=== PATIENT | male | born 1985 | race Asian ===

== ENCOUNTER 2022-05-02 22:51 | Emergency (ER) | payer SELFPAY ==
[~2022-05-02] VITALS: Ht 180.3 cm; Wt 120.0 kg
[2022-05-03 00:29] LABS: BASOPHILS % (AUTO) 0.4 % (0.0-2.0); EOSINOPHILS % (AUTO) 0 % (1.0-6.0); HEMATOCRIT 42.1 % (41-53); HEMOGLOBIN 14.4 g/dL (13.5-17.5); LYMPHOCYTES # (AUTO) 0.7 K/uL (1.0-4.8); LYMPHOCYTES % (AUTO) 5.3 % (22.0-44.0); MEAN CORPUSCULAR HEMOGLOBIN 28.7 pg (26.0-34.0); MEAN CORPUSCULAR HGB CONC 34.2 G/dL (31.0-37.0); MEAN CORPUSCULAR VOLUME 84 fL (80-100); MONOCYTES # (AUTO) 0.6 K/uL (0.1-1.0); MONOCYTES % (AUTO) 4.5 % (2.0-9.0); PLATELET COUNT (AUTO) 420 K/uL (150-450); RED BLOOD CELL COUNT(AUTO) 5.02 MIL/uL (4.50-5.90)
[2022-05-03 00:30] LABS: NEUTROPHILS % (AUTO) 89.8 % (40.0-70.0)
[2022-05-03 00:39] LABS: ANION GAP 12 mmol/L (8-16); CALCIUM, TOTAL 8.9 mg/dL (8.8-10.5); CARBON DIOXIDE 25 mmol/L (22-29); CHLORIDE 99 mmol/L (98-107); CREATININE 1.23 mg/dL (0.60-1.30); GLOMERULAR FILTR. RATE CALC 51 mL/min (>60); GLUCOSE,RANDOM 161 mg/dL (70-110); POTASSIUM 3.3 mmol/L (3.5-5.1); SODIUM SERUM 136 mmol/L (136-145); UREA NITROGEN, BLOOD 19 mg/dL (7-18)
[2022-05-03 00:53] LABS: ACETAMINOPHEN < 2 mcg/mL (10-30); ALANINE AMINOTRANSFERASE 112 U/L (12-78); ALBUMIN 4.2 g/dL (3.4-5.0); ALKALINE PHOSPHATASE 105 U/L (46-116); ASPARTATE AMINOTRANSFERASE 128 U/L (15-37); BILIRUBIN,TOTAL 0.8 mg/dL (0.1-1.0); TOTAL PROTEIN, SERUM 9.1 g/dL (6.4-8.2)
[2022-05-03] MEDS ORDERED: HALOPERIDOL 5 MG TABLET PO ONE (01:00)
[2022-05-03] MEDS ORDERED: LORazepam 1 MG TABLET PO ONE (01:00)
[2022-05-03] MEDS ORDERED: HALOPERIDOL LACTATE 5 MG/ML VIAL IM ONE (01:15)
[2022-05-03] MEDS ORDERED: LORazepam 2 MG/ML VIAL IM ONE (01:15)
[2022-05-03] MEDS ORDERED: POTASSIUM CHLORIDE 10% 40 MEQ/30 ML LIQUID UDCUP PO ONE (05:15)
[2022-05-03 05:26] VITALS: BP 140/70
== END 2022-05-03 06:14 | disposition home or self-care (01) ==
LOC: EMS 22:54 → EDBD 22:54 → EMS 05-03 06:14
DX: F91.9 Conduct disorder, unspecified (principal); R74.01 Elevation of levels of liver transaminase levels; F15.20 Other stimulant dependence, uncomplicated; E87.6 Hypokalemia
CPT/HCPCS: 36415; 80053; 85025; 96372; 99284; G0480 ×2; G0481; J1630; J2060